=== PATIENT | male | born 1945 | race Caucasian/White ===

== ENCOUNTER 2019-07-07 16:25 | Inpatient (IN) | payer MEDICARE, BC ==
[~2019-07-07] VITALS: Ht 180.3 cm; Wt 102.6 kg
[2019-07-09 11:58] VITALS: BP 108/62
== END 2019-07-09 16:12 | disposition home or self-care (01) | DRG 287 ==
LOC: ED 16:58 → 5SO 17:27 → ED 19:24 → DCLOUNGE 07-09 15:53
PROVIDERS: ADMIT Family Medicine; ATTEND Family Medicine
PROC: 4A023N7 Measurement of Cardiac Sampling and Pressure, Left Heart, Percutaneous Approach (ICD-10-PCS; principal; 2019-07-08)
PROC: B211YZZ Fluoroscopy of Multiple Coronary Arteries using Other Contrast (ICD-10-PCS; 2019-07-08)
PROC: B215YZZ Fluoroscopy of Left Heart using Other Contrast (ICD-10-PCS; 2019-07-08)
DX: I25.110 Atherosclerotic heart disease of native coronary artery with unstable angina pectoris (principal); I10 Essential (primary) hypertension; E78.5 Hyperlipidemia, unspecified; K40.90 Unilateral inguinal hernia, without obstruction or gangrene, not specified as recurrent; M54.9 Dorsalgia, unspecified; G89.29 Other chronic pain; Z87.891 Personal history of nicotine dependence; R74.0 Nonspecific elevation of levels of transaminase and lactic acid dehydrogenase [LDH]
CPT/HCPCS: 0399T; 36415; 80048; 80061; 84484; 85025; 93005; 93306; 93458; 93880; 93970; 96372; 99156; 99285; C1769; C1894; G0378; J0583; J1644; J2250; J3010; J7030; Q9967